=== PATIENT | male | born 1975 | race Caucasian/White ===

== ENCOUNTER 2024-05-29 10:16 | Emergency (ER) | payer OTHER, SELFPAY ==
[2024-05-29 10:21] VITALS: BP 139/93
--- NOTE | 2024-05-29 10:44 | ED.SKININJ ---
HPI-Injury
<Diann Meyer DO, Resident - Last Filed: 06/01/24 16:01>
General
Chief Complaint: Skin Surface Trauma
Time Seen by Provider: 05/29/24 10:26
History of Present Illness-Injury
Initial Injury comments:
Patient is a 49-year-old male presenting to the ED with skin surface trauma. He walked into a wall saw and cut his nose. He states he has multiple wounds that were initially bleeding a lot. He did not take any oral medications for the wound. He
cleaned out the wound with peroxide and put on Neosporin and Steri-Strips before arriving. He does not take any blood thinners. He does not remember when his last tetanus shot was.
Review of Systems
<Diann Meyer DO, Resident - Last Filed: 06/01/24 16:01>
Review of Systems
Constitutional: Reports no symptoms
EENT: Reports no symptoms
Respiratory: Reports no symptoms
Cardiac: Reports no symptoms
ABD/GI: Reports no symptoms
: Reports no symptoms
Musculoskeletal: Reports no symptoms
Skin: Reports other (laceration)
Hematologic/Lymphatic: Reports bleeding
Psychiatric: Reports no symptoms
Phy Exam
<Diann Meyer DO, Resident - Last Filed: 06/01/24 16:01>
General Physical Exam
General Presentation: well appearing and no apparent distress
General age: appears stated age
General Skin: warm and dry
General Habitus: normal
General Mental: alert
General Hydration: appears well hydrated
Cardiovascular Exam
Cardiovascular Exam: regular rate/rhythm, no edema, no gallop, no JVD, no murmur and normal peripheral pulses
Pulmonary Exam
Pulmonary Exam: lungs clear, no respiratory distress, no rales, chest non tender, no crackles, no rhonchi, no stridor, no wheezing and no cough
Skin Exam
Skin Exam: no rash, erythema, laceration and warmth
Psychiatric Exam
Psychiatric Exam: normal mood/affect
Course
<Diann Meyer DO, Resident - Last Filed: 06/01/24 16:01>
Orders/Labs/Results
Orders:
Orders
05/29/24 12:11
Tetanus/Diphth/Acelpertussis [Adacel] 0.5 ml IM .ONCE ONE
Vital Signs
Initial and Last Documented VS:
Initial Vital Signs
Temp Pulse Resp BP Pulse Ox
98.6 F 76 16 139/93 97
05/29/24 10:21 05/29/24 10:21 05/29/24 10:21 05/29/24 10:21 05/29/24 10:21
Last Documented Vital Signs
Temp Pulse Resp BP Pulse Ox
98.6 F 76 16 139/93 97
05/29/24 10:21 05/29/24 10:21 05/29/24 10:21 05/29/24 10:21 05/29/24 10:21
<Darrion Tucker DO - Last Filed: 05/29/24 15:43>
Orders/Labs/Results
Orders:
Orders
05/29/24 12:11
Tetanus/Diphth/Acelpertussis [Adacel] 0.5 ml IM .ONCE ONE
Vital Signs
Initial and Last Documented VS:
Initial Vital Signs
Temp Pulse Resp BP Pulse Ox
98.6 F 76 16 139/93 97
05/29/24 10:21 05/29/24 10:21 05/29/24 10:21 05/29/24 10:21 05/29/24 10:21
Last Documented Vital Signs
Temp Pulse Resp BP Pulse Ox
98.6 F 76 16 139/93 97
05/29/24 10:21 05/29/24 10:21 05/29/24 10:21 05/29/24 10:21 05/29/24 10:21
Procedures
<Diann Meyer DO, Resident - Last Filed: 06/01/24 16:01>
Laceration Closure
Nose:
Status of Wound: clean
Description of Wound Edges: flap-well vascularized
Preparation: cleaned with saline
Anesthesia: 1% Lidocaine and added Na Bicarb to local
Revision/Debridement: minor revision
Wound exploration: explored to base- no FB
Type of Closure: single layer closure
Skin Closure Material: 6-0 prolene
Number of sutures: 6
<Diann Meyer DO, Resident - Last Filed: 06/01/24 16:01>
MDM/Problems Addressed
Differential Diagnosis Includes:
skin laceration
MDM/Problems Addressed:
Patient is a 49-year-old male presenting to the ED with a skin laceration on the tip of his nose. There are 2 incisions. 1 incision on the lateral right side of the nose is well-approximated. The second incision on the top of his nose is oozing
blood. Patient was given 6 stitches to approximate the wound on the tip of the nares. Patient has been recommended to get sutures removed at primary care doctor's office on Friday. Patient was also given tetanus shot for prophylaxis.
Chronic conditions affecting care:
NA
Acute Exacerbation and/or Progression of Chronic Illness:
NA
<Diann Meyer DO, Resident - Last Filed: 06/01/24 16:01>
*Critical Care Note
Total Time (30-74mins, 75-104mins- exclusive of procedures): Not Applicable
ED Attending Note
<Diann Meyer DO, Resident - Last Filed: 06/01/24 16:01>
-
Portions of this chart may have been created with voice recognition software.� Occasional wrong word or��sound alike� substitutions may have occurred due to the inherent limitations of voice recognition software.
<Darrion Tucker DO - Last Filed: 05/29/24 15:43>
ED Attending Note
Patient seen and examined by attending physician: Yes
I performed a history and physical exam of patient and discussed management with resident, I reviewed resident's note and agree with documented findings and plan of care.: Yes
ED Attending Note:
Patient is a 49-year-old male whose tetanus is not up-to-date and presents with a laceration to his nose from a tree saw. Patient states he accidentally turned into it and lacerated the tip of his nose at 5 PM last night. Patient has some pain.
Patient denies any other injuries. On physical exam the patient has a well vascular irregularly shaped flap to the tip of his nose. No signs of damage to the nares. Patient's nose was anesthetized with minor revisions of the wound edges and
closed with six 6-0 Prolene sutures. Patient tolerated procedure well. Sutures will come out in 5 to 7 days.
Discharge Plan
Departure
Patient Disposition: Home (Routine Discharge)
Date of Disposition: 05/29/24
Time of Disposition: 13:04
Patient with high blood pressure during this ER visit?: Yes
Condition: Good
Discharge Problem:
Laceration of nose
Instructions: Wound Care (DC), Laceration Repair With Stitches (DC), BLOOD PRESSURE
Referrals:
UNKNOWN - PT DOES,NOT KNOW [Family Provider] -
Interventions
Interventions:
*General Assessment Last Done: 05/29/24 10:21
*ED COVID-19 Vaccine History Last Done: 05/29/24 10:21
*Nursing Disposition Last Done: 05/29/24 13:17
ED-Skin Assessment Last Done: 05/29/24 10:25
Discharge Date and Time
Discharge Date/Time: 05/29/24 13:17
Print Language: [id number]
[2024-05-29] MEDS: ADACEL 0.5 ML IM (12:30)
== END 2024-05-29 13:17 | disposition home or self-care (01) ==
LOC: EMR 10:16
PROVIDERS: EMERGENCY PHYSICIAN Emergency Medicine
DX: S01.21XA Laceration without foreign body of nose, initial encounter (principal); W22.8XXA Striking against or struck by other objects, initial encounter
CPT/HCPCS: 99282; 90471; 12011; 90715